=== PATIENT | female | born 1990 ===

== ENCOUNTER 2023-11-09 07:33 | Emergency (ER) | payer OTHER ==
[~2023-11-09] VITALS: Ht 177.8 cm; Wt 105.0 kg
[2023-11-09 07:34] VITALS: TEMP 98.5
[2023-11-09 09:00] VITALS: BP 145/89; PULSE 80; RESP 16
== END 2023-11-09 09:14 | disposition home or self-care (01) ==
LOC: EMS 07:33
DX: S05.12XA Contusion of eyeball and orbital tissues, left eye, initial encounter (principal); Z91.018 Allergy to other foods; Y08.89XA Assault by other specified means, initial encounter; Y93.89 Activity, other specified; Y92.89 Other specified places as the place of occurrence of the external cause; Y99.0 Civilian activity done for income or pay
CPT/HCPCS: 70486; 99284; Z7502

== ENCOUNTER 2023-12-20 15:58 | Emergency (ER) | payer OTHER ==
[~2023-12-20] VITALS: Ht 177.8 cm; Wt 104.5 kg
[2023-12-20] MEDS ORDERED: AMOX1TAB15 PO (16:07)
[2023-12-20] MEDS: ACETAMINOPHEN 500 MG TABLET PO ONE (16:44)
[2023-12-20 16:56] LABS: BASOPHILS % (AUTO) 0.8 % (0.0-2.0); EOSINOPHILS % (AUTO) 3.8 % (1.0-6.0); HEMATOCRIT 34.9 % (36-46); HEMOGLOBIN 11.4 g/dL (12.0-16.0); LYMPHOCYTES # (AUTO) 1.4 K/uL (1.0-4.8); LYMPHOCYTES % (AUTO) 30.7 % (22.0-44.0); MEAN CORPUSCULAR HGB CONC 32.5 G/dL (31.0-37.0); MEAN CORPUSCULAR VOLUME 83 fL (80-100); MONOCYTES # (AUTO) 0.3 K/uL (0.1-1.0); MONOCYTES % (AUTO) 6.4 % (2.0-9.0); NEUTROPHILS # (AUTO) 2.6 K/uL (1.8-7.7); NEUTROPHILS % (AUTO) 58.3 % (40.0-70.0); PLATELET COUNT (AUTO) 245 K/uL (150-450); RED CELL DISTRIBUTION WIDTH 14.8 % (11.5-14.5); WHITE BLOOD COUNT (AUTO) 4.5 K/uL (4.5-11.0)
[2023-12-20 17:05] LABS: ANION GAP 8 mmol/L (8-16); CALCIUM, TOTAL 8.7 mg/dL (8.8-10.5); CARBON DIOXIDE 29 mmol/L (22-29); CHLORIDE 106 mmol/L (98-107); GLOMERULAR FILTR. RATE CALC > 60 mL/min (>60); GLUCOSE,RANDOM 112 mg/dL (70-110); POTASSIUM 3.9 mmol/L (3.5-5.1); SODIUM SERUM 143 mmol/L (136-145); UREA NITROGEN, BLOOD 8 mg/dL (7-18)
[2023-12-20 17:27] LABS: TROPONIN I-HIGH SENSITIVITY 4 ng/L (<51)
[2023-12-20 17:30] LABS: ALANINE AMINOTRANSFERASE 25 U/L (12-78); ALBUMIN 3.3 g/dL (3.4-5.0); ALKALINE PHOSPHATASE 99 U/L (46-116); ASPARTATE AMINOTRANSFERASE 20 U/L (15-37); BILIRUBIN,TOTAL 0.2 mg/dL (0.1-1.0); CREATINE KINASE, TOTAL ONLY 80 U/L (26-192); TOTAL PROTEIN, SERUM 7.6 g/dL (6.4-8.2)
[2023-12-20 19:31] VITALS: BP 123/69; PULSE 83; RESP 16; TEMP 98
== END 2023-12-20 20:51 | disposition home or self-care (01) ==
LOC: EMS 16:03
DX: R07.9 Chest pain, unspecified (principal); Z91.018 Allergy to other foods
CPT/HCPCS: 71045; 80053; 82550; 84484; 84703; 85025; 93005; 99285; 36415-L1; 36415-TC

== ENCOUNTER 2024-05-30 01:54 | Emergency (ER) | payer MEDICAID, OTHER ==
[~2024-05-30] VITALS: Ht 177.8 cm; Wt 107.7 kg
[~2024-05-30 01:54] MED LIST: AMOX1TAB15 PO
[2024-05-30 02:14] VITALS: BP 144/99; PULSE 84; RESP 16; TEMP 98.6; O2SAT 98
[2024-05-30] MEDS ORDERED: IBUP-1492 PO (03:48)
[2024-05-30] MEDS ORDERED: OXYC-38 PO (03:48)
[2024-05-30] MEDS ORDERED: AMOX500C2 PO (03:48)
[2024-05-30] MEDS: HYDROCODONE/ACETAMINOPHEN 5-325 MG TABLET PO ONE (04:20)
== END 2024-05-30 04:25 | disposition home or self-care (01) ==
LOC: EMS 01:54
DX: K08.89 Other specified disorders of teeth and supporting structures (principal); F41.9 Anxiety disorder, unspecified; Z98.890 Other specified postprocedural states; Z91.018 Allergy to other foods
CPT/HCPCS: 99283

== ENCOUNTER 2024-06-11 22:13 | Emergency (ER) | payer MEDICAID ==
[~2024-06-11] VITALS: Ht 182.9 cm; Wt 95.5 kg
[~2024-06-11 22:13] MED LIST changes: +AMOX500C2 PO; +IBUP-1492 PO; +OXYC-38 PO
[2024-06-11 22:29] VITALS: BP 132/79; PULSE 62; RESP 18; TEMP 99; O2SAT 99
== END 2024-06-11 23:23 | disposition home or self-care (01) ==
LOC: EMS 22:13
DX: S30.1XXA Contusion of abdominal wall, initial encounter (principal); Z91.018 Allergy to other foods; Y04.8XXA Assault by other bodily force, initial encounter; Y93.89 Activity, other specified; Y92.89 Other specified places as the place of occurrence of the external cause; Y99.8 Other external cause status
CPT/HCPCS: 99282; Z7502